=== PATIENT | female | born 1955 | race Asian ===

== ENCOUNTER → 2016-07-15 | Outpatient (CLI) | payer BC, OTHER | LOC: CIMAGING 08:19 | DX: Z12.31 Encounter for screening mammogram for malignant neoplasm of breast (principal) | CPT/HCPCS: G0202 ==

== ENCOUNTER → 2017-06-16 | Outpatient (CLI) | payer BC | LOC: BRMIMAGING 08:25 | PROVIDERS: ATTEND Family Medicine | DX: Z13.820 Encounter for screening for osteoporosis (principal); M81.0 Age-related osteoporosis without current pathological fracture ==

== ENCOUNTER → 2017-07-17 | Outpatient (CLI) | payer BC | LOC: FIMAGING 10:08 | PROVIDERS: ATTEND Family Medicine | DX: Z12.31 Encounter for screening mammogram for malignant neoplasm of breast (principal) ==

== ENCOUNTER 2018-09-08 11:10 | Emergency (ER) | payer BC, OTHER ==
--- NOTE | 2018-09-08 11:43 | EDPHY ---
H & P Stated Complaint: acute onset upper back sharp pain, constant started 10am today , SOB Time Seen by Provider: 09/08/18 11:20 HPI/ROS: Chief Complaint: Back pain HPI: 63-year-old woman with no significant medical history had the onset of upper central back pain this morning. It was on precipitated. Described as a 7 /10 between her shoulder blades. It is worse when she takes a deep breath. No cough. No fevers or chills. No chest pain. It is not radiating. It is not worsened with movement or exertion. No leg pain or swelling. No recent periods of immobility. No history of coronary artery disease. No history of thromboembolic disease in the family. No abdominal pain. No nausea or vomiting. ROS: 10 systems were reviewed and were negative except those elements noted in the HPI. PMH: Denies Social History: No smoking, no alcohol, no recreational drug use Family History: non-contributory Physical Exam: Gen: Awake, Alert, No Distress HEENT: Nose: no rhinorrhea Eyes: PERRLA, EOMI Mouth: Moist mucosa Neck: Supple, no JVD Chest: nontender, lungs clear to auscultation Heart: S1, S2 normal, no murmur Abd: Soft, non-tender, no guarding Back: no CVA tenderness, no midline tenderness Ext: no edema, non-tender Skin: no rash Neuro: CN II-XII intact, Sensation grossly intact, Strength 5/5 in bilateral upper and lower extremities - Medical/Surgical History Other PMH: begnin breast nodules, hemorrhoid surg - Social History Smoking Status: Never smoked Constitutional: Initial Vital Signs Temperature (C) 36.9 C 09/08/18 11:21 Heart Rate 87 09/08/18 11:21 Respiratory Rate 18 09/08/18 11:21 Blood Pressure 139/78 H 09/08/18 11:21 O2 Sat (%) 98 09/08/18 11:21 O2 Delivery Mode Room Air Allergies/Adverse Reactions: No Known Allergies Allergy (Unverified 09/08/18 11:21) Home Medications: Medication Instructions Recorded NK [No Known Home Meds] 09/08/18 Medical Decision Making - Diagnostics EKG Interpretation: ECG time 11:37 a.m., sinus rhythm with a rate of 64, borderline left atrial enlargement. Normal intervals. No acute ST or T-wave changes. Imaging Results: Imaging Impressions Chest X-Ray 09/08/18 11:31 Impression: No acute findings in the chest. ED Course/Re-evaluation: 63-year-old woman presenting with mid scapular central back pain this morning. She has normal ECG. Normal chest x-ray. D-dimer is 0. Troponin is 0. Liver function is normal. No evidence of gallbladder disease. Abdomen is soft and benign. She is completely neurologically intact. She is afebrile. She has not have any risk factors for acute neurosurgical emergency. She has no risk factors for thromboembolic disease. No risk factors for coronary artery disease. Patient has been reassured. Will treat her with anti-inflammatories and reassess. - Data Points Laboratory Results: 09/08/18 09/08/18 12:14 11:45 POC Sodium 145 mEq/L mEq/L (135-145) POC Potassium 3.5 mEq/L mEq/L (3.3-5.0) POC Chloride 105.0 mEq/L mEq/L (97-110) POC Total CO2 29 mEq/L mEq/L (22-31) POC BUN 10 mg/dL mg/dL (7-23) POC Creatinine 0.8 mg/dL mg/dL (0.6-1.0) POC Glucose 98 mg/dL mg/dL (70-100) POC Calcium 9.6 mg/dL mg/dL (8.5-10.4) POC Total Bilirubin 1.1 mg/dL mg/dL (0.1-1.4) POC AST 28 IU/L IU/L (14-46) POC ALT 25 IU/L IU/L (9-52) POC Alk Phosphatase 96 IU/L IU/L (38-126) POC Troponin I 0.00 ng/mL ng/mL (0.00-0.08) POC Total Protein 7.1 g/dL g/dL (6.3-8.2) POC Albumin 3.7 g/dL g/dL (3.5-5.0) Point of Care Test Results: CBC CBC Collection Date 09/08/18 CBC Collection Time 11:39 WBC 5.35 RBC 5.06 HGB 15.2 HCT 44.8 PLT 198 Neut # 3.06 Neut 57.2 LYMPH # 1.96 LYMPH 36.6 MCV 88.5 Chemistry 09/08/18 09/08/18 12:14 11:45 POC Sodium 145 mEq/L mEq/L (135-145) POC Potassium 3.5 mEq/L mEq/L (3.3-5.0) POC Chloride 105.0 mEq/L mEq/L (97-110) POC Total CO2 29 mEq/L mEq/L (22-31) POC BUN 10 mg/dL mg/dL (7-23) POC Creatinine 0.8 mg/dL mg/dL (0.6-1.0) POC Glucose 98 mg/dL mg/dL (70-100) POC Calcium 9.6 mg/dL mg/dL (8.5-10.4) POC Total Bilirubin 1.1 mg/dL mg/dL (0.1-1.4) POC AST 28 IU/L IU/L (14-46) POC ALT 25 IU/L IU/L (9-52) POC Alk Phosphatase 96 IU/L IU/L (38-126) POC Troponin I 0.00 ng/mL ng/mL (0.00-0.08) POC Total Protein 7.1 g/dL g/dL (6.3-8.2) POC Albumin 3.7 g/dL g/dL (3.5-5.0) D-Dimer D-Dimer Collection Date 09/08/18 D-Dimer Collection Time 11:39 D-Dimer (ng/ml) <100 Departure - Departure Disposition: Home, Routine, Self-Care Clinical Impression: Back pain Condition: Good Instructions: Back Pain (ED) Additional Instructions: Take ibuprofen, 600 mg every 8 hr. You may alternate with acetaminophen, 1000 mg every 8 hr. Follow up with primary care physician in 2-3 days if symptoms are not improving. Return to the emergency department worsening pain, worsening shortness of breath , cough, central chest pain, fainting, or any other concerns. Referrals: Rosa Jalloh MD [Primary Care Provider] - As per Instructions
[2018-09-08] MEDS ORDERED: KETOROLAC 15 MG/1 ML SDV IVP ONE (12:38)
[2018-09-08 13:40] VITALS: BP 116/75
--- NOTE | 2018-09-09 06:52 | CPEKG ---
Test Reason : OPEN Blood Pressure : / mmHG Vent. Rate : 064 BPM Atrial Rate : 064 BPM P-R Int : 162 ms QRS Dur : 085 ms QT Int : 407 ms P-R-T Axes : 059 013 038 degrees QTc Int : 420 ms Sinus rhythm Probable left atrial enlargement Confirmed by Nilesh Hoyt ([id number]) on 09/09/2018 6:52:15 AM Referred By: Nilesh Hoyt Confirmed By:Nilesh Hoyt
== END 2018-09-08 13:36 | disposition home or self-care (01) ==
LOC: CED 11:10
DX: M54.9 Dorsalgia, unspecified (principal)
CPT/HCPCS: 71046-PO; 80053-ER; 84484-ER; 85025-QW-ER; 85379-QW-ER; 96374-ER; 99285-ER; J1885

== ENCOUNTER → 2018-10-12 | Outpatient (CLI) | payer OTHER | LOC: CIMAGING 14:44 | PROVIDERS: ATTEND Family Medicine | DX: Z12.31 Encounter for screening mammogram for malignant neoplasm of breast (principal) ==